=== PATIENT | male | born 1955 | race Caucasian/White ===

== ENCOUNTER 2023-11-17 10:24 | Day surgery (SDC) | payer MEDICARE, SELFPAY ==
[2023-11-17 11:54] VITALS: BP 109/74; PULSE 97; RESP 18; TEMP 36.2; O2SAT 96
[2023-11-17] MEDS: Tropicam./Phenyleph. (1/2.5%) 5 ML BTL ×3 (11:59→12:09)
--- NOTE | 2023-11-17 12:03 | W.ANESPRE ---
General Info Date of Service Date Performed: 11/17/23 Height: 6 ft Weight: 90.7 kg Body Mass Index (BMI): 27.1 Surgical Procedure: Operation Date: 11/17/23 14:40 Proposed Procedure Side Surgeon p Cataract Extraction with IOL Implant Right Guy Fitzgerald MD Meds Allergies and Home Medications Allergies Allergy/AdvReac Type Severity Reaction Status Date / Time polystyrene sulfonate (From Allergy Mild Diarrhea Unverified 11/17/23 11:52 Kayexalate) metformin Allergy Unknown Unknown Unverified 11/17/23 11:52 Home Medication ?Medication ?Instructions ?Recorded aspirin 81 mg tablet,delayed 81 mg PO DAILY 11/16/22 release (Adult Aspirin Regimen) atorvastatin 40 mg tablet 40 mg PO DAILY 11/16/22 furosemide 40 mg tablet 40 mg PO BID 11/16/22 insulin glargine 100 unit/mL (3 6 unit subcut QPM 11/16/22 mL) subcutaneous pen (Lantus Solostar U-100 Insulin) vitamin B complex-vitamin C-folic 1 tab PO DAILY #1 tab 11/21/22 acid 0.8 mg tablet (Nephro-Deep) metoprolol succinate 100 mg 50 mg PO DAILY 11/08/23 tablet,extended release 24 hr sevelamer HCl 800 mg tablet 1,600 mg PO TID 11/08/23 Current Visit Medications: Current Medications Generic Name Dose Route Start Last Admin Trade Name Freq PRN Reason Stop Dose Admin Acetaminophen 1,000 mg 11/17/23 06:00 Acetaminophen 500 Mg Tab PO 12/17/23 05:59 Q4H PRN PRN Balanced Salt Solution 500 ml 11/17/23 06:00 Balanced Salt Soln.-Plus 500 Ml Bag OP 12/17/23 05:59 DIRECTED ROZ Miscellaneous Medication 0 ml 11/17/23 06:00 Prednisolone 1%, Moxifloxacin 0.5%, Bromfenac 0.09% 5.6ml Btl OD 12/17/23 05:59 DIRECTED ROZ Miscellaneous Medication 0 ml 11/17/23 06:00 Tropicam./Phenyleph. (1/2.5%) 10 Ml Btl OD 12/17/23 05:59 DIRECTED ROZ Tetracaine HCl 0 ml 11/17/23 06:00 Tetracaine 0.5% 4 Ml Btl OD 12/17/23 05:59 DIRECTED [facility] Active Problems Active Problems: Problem Status Onset Code Posterior subcapsular age-related cataract, right eye Acute H25.041 Nuclear age-related cataract, right eye Acute H25.11 Vitamin D deficiency Acute E55.9 Uremia Acute N19 Neuropathy Acute G62.9 Hyperlipemia Acute E78.5 Metabolic acidemia Acute E87.20 Hypoglycemia Acute E16.2 Hypocalcemia Acute E83.51 Hyperkalemia Acute E87.5 CHF (congestive heart failure) Chronic I50.9 Ventricular tachycardia Chronic I47.20 Presence of implantable cardioverter-defibrillator (ICD) Acute Z95.810 End stage renal disease Acute N18.6 HTN (hypertension) with goal to be determined Acute I10 Cirrhosis Acute K74.60 Diabetes mellitus Chronic E11.9 Cardiomyopathy Acute I42.9 Medical History Medical History ESRD on dialysis 11/15/23 last dialysis- Hx of diarrhea GI bleed Anemia Surgical History Surgical History Status post biopsy of kidney right Kidney Biopsy 09/16/2020 H/O endoscopy 06/26/2022 Tobacco Smoking/Tobacco Use Status: Former Tobacco Use Alcohol Alcohol Intake: former Substance Use Substance use: Rarely Substance use type: marijuana Details: Marijuana: Last used 1 week ago Vital Signs and Lab Results Vital Signs Most Recent Vital Signs in EMR: Most Recent Vital Signs Temp Pulse Resp BP Pulse Ox 36.2 C L 97 H 18 109/74 96 11/17/23 11:54 11/17/23 11:54 11/17/23 11:54 11/17/23 11:54 11/17/23 11:54 Point of Care Results Point of Care Results: Finger Stick Blood Glucose 106 11/17/23 12:02 Lab Results Blood Type / Crossmatch: No Data to Display Complete Blood Count: No Data to Display Complete Metabolic Panel: No Data to Display Liver Function Panel: No Data to Display Coagulation Panel: No Data to Display Cardiac Panel: No Data to Display Arterial Blood Gas: No Data to Display Venous Blood Gas: No Data to Display Pancreas Panel: No Data to Display Thyroid Panel: No Data to Display Infectious Disease: No Data to Display Blood Cultures: No Data to Display Toxicology Panel: No Data to Display Anesthesia Assessment and Plan Anesthesia History Personal History: No History of Anesthesia Complications Family History: No Family History of Anesthesia Complications Exercise Tolerance Exercise Tolerance: Metabolic Equivalents<4 Pertinent Negatives Pertinent Negatives: No Major Cardiovascular Symptoms or Complaints and No Major Pulmonary Symptoms or Complaints Cardiac & Pulmonary Exam Cardiac Exam: Normal S1/S2 Heart Sounds Pulmonary Exam: Clear Bilateral Breath Sounds Implantable Cardiac Device Does patient have a Pacemaker or an ICD?: Yes Device Senior Web Engineer:: [employer] [id number] Reason for Placement:: V-tach, ventricular tachycardia Date of Last Device Interrogation:: 10/21/23 Airway Exam Known Difficult Airway: No Mallampati Class: 2 Mouth Opening: Normal (> 3cm) Thyromental Distance: Greater than 3 cm Neck Range of Motion: Full ROM Neck Circumference: Normal Teeth Condition: Generalized Poor Dentition (one tooth upper, broken nubs front lower) ASA Classification ASA Score: ASA 4 Emergency Case?: No NPO Status NPO Status: NPO Clears >2 hours, Solids >8 hours Anesthesia Plan Resuscitation Status: Full Code Anesthesia Technique: MAC Anesthesia Airway Planned: Natural Airway Monitors Used: Standard Monitors Preoperative Comments:: Last dialysis 11/17/23 am
[2023-11-17 12:19] VITALS: BMI 27.1
[2023-11-17] MEDS: Lidocaine 1% Pres-Free 5 ML VIAL (13:28)
[2023-11-17] MEDS: Duovisc Viscoelastic System EACH 1 EACH (13:28)
[2023-11-17] MEDS: Trypan Blue 0.06% 0.5 ML SYR (13:30)
[2023-11-17] MEDS: Balanced Salt Soln.-PLUS 500 ML BAG OP (13:30)
[2023-11-17] MEDS: Povidone-Iodine Ophth 30 ML BTL (13:30)
[2023-11-17] MEDS: Prednisolone 1%, Moxifloxacin 0.5%, Bromfenac 0.09% 5.6ML BTL OD (13:31)
[2023-11-17] MEDS: Tetracaine 0.5% 4 ML BTL OD (13:31)
[2023-11-17 14:05] VITALS: BP 122/57; PULSE 87; RESP 18; TEMP 36.4; O2SAT 99
--- NOTE | 2023-11-17 14:09 | W.PM.DSUDISC ---
Date of service: 11/17/23 Time of Service: 14:09 Discharge Plan Disposition Patient Disposition: Home Discharge Details Attending Provider: Guy Fitzgerald Primary Care Provider: Mervin Mcfarlane Home Meds and New Rx's Prescriptions: No Action aspirin [Adult Aspirin Regimen] 81 mg tablet,delayed release (DR/EC) 81 mg PO DAILY atorvastatin 40 mg tablet 40 mg PO DAILY furosemide 40 mg tablet 40 mg PO BID insulin glargine [Lantus Solostar U-100 Insulin] 100 unit/mL (3 mL) insulin pen 6 unit subcut QPM Nephro-Deep 0.8 mg tablet 1 tab PO DAILY Qty: 1 0RF metoprolol succinate 100 mg tablet extended release 24 hr 50 mg PO DAILY sevelamer HCl 800 mg tablet 1,600 mg PO TID Rx Instructions: must administer with a meal/food Discharge Instructions Stand Alone Forms: DSU Post-Op CataractMonalisa (DSU) Discharge Orders Discharge Orders: Discharge Order (Routine); Ordered 11/17/23 Ordered By: Guy Fitzgerald DS: Diagnosis Discharge Diagnosis (1) Posterior subcapsular age-related cataract, right eye: Status: Resolved (2) Nuclear age-related cataract, right eye: Status: Resolved
--- NOTE | 2023-11-17 14:10 | ROE_ITS ---
Date of service: 11/17/23 Time of Service: 14:10 Operative Note Operative Note DATE OF PROCEDURE: 11/17/23 PRE-OP DIAGNOSIS: Dense nuclear/posterior subcapsular cataract, right eye POST-OP DIAGNOSIS: same PROCEDURE: Cataract extraction using phacoemulsification with intraocular lens implant, right eye SURGEON: Guy Fitzgerald ANESTHESIA TYPE: Local By Surgeon and MAC Refer to Anesthesia Record ESTIMATED BLOOD LOSS: 0 PATHOLOGY: none sent COMPLICATIONS: None Patient was transported to: same day Patient's condition: stable Implants: Jasper Clareon [id number] Indications: Progressive decreased vision due to cataract, right eye Procedure Description: CATARACT SURGERY OPERATIVE REPORT PREOPERATIVE DIAGNOSIS: Dense nuclear/posterior subcapsular cataract, right eye POSTOPERATIVE DIAGNOSIS: Same OPERATION: Cataract extraction using phacoemulsification with posterior chamber intraocular lens implant, right eye. IOL: IOL Senior Drupal Developer/Model: Jasper Clareon [id number] IOL Power: + 17.5 diopters IOL Serial Number: [id number] Optic Diameter: 6.0mm Haptic/Overall Diameter: 13.0mm PHACO INFO: Jasper [employer]urion Vision System with OZil and Active Fluidics Cumulative Dispersed Energy (CDE): 35.37 seconds SURGEON: Guy Fitzgerald MD, ANIKET ANESTHESIA: Monitored Anesthesia Care (MAC), with local sub-tenon's anesthetic infiltration COMPLICATIONS: None SPECIMENS: None INDICATIONS FOR PROCEDURE: The patient is a 68-year-old male with history of diminished visual acuity in his right eye secondary to the development of dense brunescent nuclear cataract with dense posterior subcapsular cataract as well. Visual acuity measures counting fingers. The option of cataract surgery was offered to the patient and he wished to proceed. See office notes for detailed information. PROCEDURE: The correct surgical eye was identified and marked as the right eye and the pupil was dilated in the preoperative area using mydriatics and cycloplegics. The dilated pupil size was 6.0 mm. The patient elected to pr oceed without oral sedation. The patient was brought to the operating room where cardiopulmonary monitoring was instituted and surgical time-out was performed, confirming the correct operative eye and IOL power. Topical anesthesia was administered and ophthalmic povidone-iodine 5% was instilled into the conjunctival fornices. The irene-ocular area was prepped with Betadine 10% solution and draped in the usual sterile fashion for intraocular surgery, including an aperture drape. A Tegaderm transparent film dressing was cut in half and used to cover the lashes and lid margins. Care was taken to sequester the lashes and lid margins under the Tegaderm dressing. A lid speculum was placed between the lids of the operative eye and the Jasper Lux[employer] Revalia operating microscope was maneuvered into position. Rk scissors were then used to make a conjunctival buttonhole approximately 6mm posterior to the limbus in the inferonasal quadrant. Blunt dissection was carried out to expose bare sclera, and a blunt-tipped sub-tenon?s anesthesia cannula was introduced and passed posteriorly along the globe where non- preserved plain lidocaine was injected into posterior sub-Tenon?s space. A sideport knife was used to make a paracentesis port. VisionBlue was injected into the anterior chamber and allowed to sit for 30 seconds. Intraocular phenylephrine/lidocaine was injected into the anterior chamber. The anterior chamber was then filled with viscoelastic. A keratome knife was used to construct a two--plane clear corneal tunnel extending 2.0mm into clear cornea. A flap was raised on the anterior capsule and capsulorhexis forceps were used to complete a continuous curvilinear capsulorhexis of 5.0 mm. The capsule was noted to be very thin. Balanced salt solution was then used to perform cortical cleaving hydrodissection and nuclear hydrodelineation until the lens could be freely rotated within the capsular bag. The lens nucleus was then disassembled and removed within the capsular bag and iris plane using phacoemulsification. A deep groove was sculpted into the central nucleus, which was then rotated 180 degrees and the groove was lengthened. The lens was then cracked into 2 halves, although there was a dense leathery posterior plate which required some extra sculpting and cracking to completely separate. Under additional dispersive viscoelastic protection, each nuclear half was then subchopped into multiple small fragments and removed at the iris plane. Residual cortical material was removed using the I/A handpiece. The posterior capsule was carefully polished to remove as much residual lens epithelial cells as safely possible. The capsular bag was then inflated and the anterior chamber deepened with cohesive viscoelastic. The lens implant described above was inserted into the capsular bag using the Jasper Autonome Injector. A Kuglen hook was used to dial the IOL into position. Residual viscoelastic was then removed first from posterior to the IOL, then from the anterior chamber using the I/A handpiece. The lens implant was noted to center nicely within the capsular bag. The incisions were stromally hydrated, and the anterior chamber was reformed using BSS. Then 0.5cc of moxifloxacin 1.0mg/ml were injected into the capsular bag and anterior chamber. The incisions were checked with a Weck spear and found to be secure. Several drops of ophthalmic povidone-iodine 5% were then applied to the eye followed by two drops of combination steroid/NSAID/antibiotic solution. The drapes were removed and a clear plastic protective eye shield was placed over the eye. The patient was then returned to Same Day Surgery in stable condition.
--- NOTE | 2023-11-17 14:18 | W.ANESPOSTOP ---
Postoperative Evaluation Date, Time and Location Date Performed: 11/17/23 Time Performed: 14:18 Patient Location: Day Surgery Unit Vital Signs Most Recent Imported Vital Signs: Most Recent Vital Signs Temp Pulse Resp BP Pulse Ox 36.4 C L 87 18 122/57 L 99 11/17/23 14:05 11/17/23 14:05 11/17/23 14:05 11/17/23 14:05 11/17/23 14:05 Pain Score Most Recent Pain Score: Most Recent Pain Score Pain Level 0 11/17/23 14:05 Assessment Mental Status: Awake (Alert & Oriented to Patient Baseline) Airway and Respiratory Function: Patent airway with normal (patient baseline) respiratory exam Cardiovascular Function: Hemodynamically Stable Hydration Status: Adequately Hydrated Nausea & Vomiting: No Nausea or Vomiting Pain: Pt. Denies Any Pain Peripheral Nerve Block: Patient did not receive a nerve block
== END 2023-11-17 14:23 | disposition home or self-care (01) ==
LOC: SUR 10:27
PROVIDERS: PCP Family Medicine; Visit Provider Ophthalmology
PROC: (CPT 66984; principal; 2023-11-17 14:30)
DX: H25.041 Posterior subcapsular polar age-related cataract, right eye (principal); H25.11 Age-related nuclear cataract, right eye
CPT/HCPCS: 66984; 00123; V2632; J2003

== ENCOUNTER → 2023-11-20 10:49 | Outpatient (BNVA) | payer MEDICARE, SELFPAY | PROVIDERS: PCP Family Medicine; Referring Provider Family Medicine; Visit Provider Surgery | DX: N18.6 End stage renal disease (principal); Z99.2 Dependence on renal dialysis ==

== ENCOUNTER 2023-12-01 10:47 | Day surgery (SDC) | payer MEDICARE, SELFPAY ==
--- NOTE | 2023-12-01 07:03 | HPE_ITS ---
Assessment and Plan Assessment and plan (1) Posterior subcapsular age-related cataract of left eye: Status: Acute (2) Nuclear age-related cataract, left eye: Status: Acute History of Present Illness History of Present Illness Chief Complaint: Progressive decreased vision left eye Review of Systems All systems reviewed & are unremarkable except as noted in HPI and below PFSH All Active Problems (Updated 11/29/23 @ 20:00 by Guy Fitzgerald MD) Posterior subcapsular age-related cataract of left eye (Acute) Nuclear age-related cataract, left eye (Acute) Dialysis patient (Acute) Vitamin D deficiency (Acute) Uremia (Acute) Neuropathy (Acute) Hyperlipemia (Acute) Metabolic acidemia (Acute) Hypoglycemia (Acute) Hypocalcemia (Acute) Hyperkalemia (Acute) CHF (congestive heart failure) (Chronic) Ventricular tachycardia (Chronic) on amiodarone therapy RH Presence of implantable cardioverter-defibrillator (ICD) (Acute) 11/16/22 [place] at [facility] [place] after cardiac arrest after dialysis RH End stage renal disease (Acute) hemodialysis RH HTN (hypertension) with goal to be determined (Acute) Cirrhosis (Acute) Diabetes mellitus (Chronic) Cardiomyopathy (Acute) 11/16/22 from [facility] [place] severely reduced LVEF history of cardiac arrest RH Medical History (Updated 11/29/23 @ 20:00 by Guy Fitzgerald MD) ESRD on dialysis 11/15/23 last dialysis- Hx of diarrhea GI bleed Anemia Surgical History Status post biopsy of kidney right Kidney Biopsy 09/16/2020 H/O endoscopy 06/26/2022 Social History (Updated 11/21/22 @ 11:24 by Anthony Cruz) Smoking/Tobacco Use Status: Former Tobacco Use Quit Date: 08/08/21 Smoking risk assessment performed?: Yes Alcohol Intake: former Drug use: Rarely Substance use type: marijuana Details: Marijuana: Last used 1 week ago Housing: apartment Do you feel safe at home: Yes Do you feel safe in your relationship?: Yes Meds Allergies and Home Medications Allergies Allergy/AdvReac Type Severity Reaction Status Date / Time polystyrene sulfonate (From Allergy Mild Diarrhea Verified 11/28/23 15:10 Kayexalate) metformin Allergy Unknown Unknown Verified 11/28/23 15:10 Home Medications ?Medication ?Instructions ?Recorded ?Confirmed ?Type aspirin 81 mg tablet,delayed 81 mg PO DAILY 11/16/22 11/28/23 History release (Adult Aspirin Regimen) atorvastatin 40 mg tablet 40 mg PO DAILY 11/16/22 11/28/23 History furosemide 40 mg tablet 40 mg PO BID 11/16/22 11/28/23 History insulin glargine 100 unit/mL (3 6 unit subcut QPM 11/16/22 11/28/23 History mL) subcutaneous pen (Lantus Solostar U-100 Insulin) vitamin B complex-vitamin C-folic 1 tab PO DAILY #1 tab 11/21/22 11/28/23 Rx acid 0.8 mg tablet (Nephro-Deep) metoprolol succinate 100 mg 50 mg PO DAILY 11/08/23 11/28/23 History tablet,extended release 24 hr sevelamer HCl 800 mg tablet 1,600 mg PO TID 11/08/23 11/28/23 History Exam Resp Auscultation: clear to auscultation bilaterally Cardio Rate: regular rate Rhythm: regular rhythm
--- NOTE | 2023-12-01 11:53 | W.ANESPRE ---
General Info Height: 6 ft Weight: 90.6 kg Body Mass Index (BMI): 27.1 Surgical Procedure: Operation Date: 12/01/23 14:40 Proposed Procedure Side Surgeon p Cataract Extraction with IOL Implant Left Guy Fitzgerald MD Meds Allergies and Home Medications Allergies Allergy/AdvReac Type Severity Reaction Status Date / Time polystyrene sulfonate (From Allergy Mild Diarrhea Verified 11/28/23 15:10 Kayexalate) metformin Allergy Unknown Unknown Verified 11/28/23 15:10 Home Medication ?Medication ?Instructions ?Recorded aspirin 81 mg tablet,delayed 81 mg PO DAILY 11/16/22 release (Adult Aspirin Regimen) atorvastatin 40 mg tablet 40 mg PO DAILY 11/16/22 furosemide 40 mg tablet 40 mg PO BID 11/16/22 insulin glargine 100 unit/mL (3 6 unit subcut QPM 11/16/22 mL) subcutaneous pen (Lantus Solostar U-100 Insulin) vitamin B complex-vitamin C-folic 1 tab PO DAILY #1 tab 11/21/22 acid 0.8 mg tablet (Nephro-Deep) metoprolol succinate 100 mg 50 mg PO DAILY 11/08/23 tablet,extended release 24 hr sevelamer HCl 800 mg tablet 1,600 mg PO TID 11/08/23 Current Visit Medications: Current Medications Generic Name Dose Route Start Last Admin Trade Name Freq PRN Reason Stop Dose Admin Acetaminophen 1,000 mg 12/01/23 06:00 Acetaminophen 500 Mg Tab PO 12/31/23 05:59 Q4H PRN PRN Balanced Salt Solution 500 ml 12/01/23 06:00 Balanced Salt Soln.-Plus 500 Ml Bag OP 12/31/23 05:59 DIRECTED [facility] Miscellaneous Medication 0 ml 12/01/23 06:00 Prednisolone 1%, Moxifloxacin 0.5%, Bromfenac 0.09% 5.6ml Btl OS 12/31/23 05:59 DIRECTED [facility] Miscellaneous Medication 0 ml 12/01/23 06:00 Tropicam./Phenyleph. (1/2.5%) 10 Ml Btl OS 12/31/23 05:59 DIRECTED ROZ Tetracaine HCl 0 ml 12/01/23 06:00 Tetracaine 0.5% 4 Ml Btl OS 12/31/23 05:59 DIRECTED ROZ PFSH Active Problems Active Problems: Problem Status Onset Code Posterior subcapsular age-related cataract of left eye Acute H25.042 Nuclear age-related cataract, left eye Acute H25.12 Dialysis patient Acute Z99.2 Posterior subcapsular age-related cataract, right eye Resolved H25.041 Nuclear age-related cataract, right eye Resolved H25.11 Vitamin D deficiency Acute E55.9 Uremia Acute N19 Neuropathy Acute G62.9 Hyperlipemia Acute E78.5 Metabolic acidemia Acute E87.20 Hypoglycemia Acute E16.2 Hypocalcemia Acute E83.51 Hyperkalemia Acute E87.5 CHF (congestive heart failure) Chronic I50.9 Ventricular tachycardia Chronic I47.20 Presence of implantable cardioverter-defibrillator (ICD) Acute Z95.810 End stage renal disease Acute N18.6 HTN (hypertension) with goal to be determined Acute I10 Cirrhosis Acute K74.60 Diabetes mellitus Chronic E11.9 Cardiomyopathy Acute I42.9 Medical History Medical History (Updated 11/29/23 @ 20:00 by Guy Fitzgerald MD) ESRD on dialysis 11/15/23 last dialysis- Hx of diarrhea GI bleed Anemia Surgical History Surgical History Status post biopsy of kidney right Kidney Biopsy 09/16/2020 H/O endoscopy 06/26/2022 Tobacco Smoking/Tobacco Use Status: Former Tobacco Use Alcohol Alcohol Intake: former Substance Use Substance use: Rarely Substance use type: marijuana Details: Marijuana: Last used 1 week ago Vital Signs and Lab Results Lab Results Blood Type / Crossmatch: No Data to Display Complete Blood Count: No Data to Display Complete Metabolic Panel: No Data to Display Liver Function Panel: No Data to Display Coagulation Panel: No Data to Display Cardiac Panel: No Data to Display Arterial Blood Gas: No Data to Display Venous Blood Gas: No Data to Display Pancreas Panel: No Data to Display Thyroid Panel: No Data to Display Infectious Disease: No Data to Display Blood Cultures: No Data to Display Toxicology Panel: No Data to Display Anesthesia Assessment and Plan Anesthesia History Personal History: No History of Anesthesia Complications Family History: No Family History of Anesthesia Complications Exercise Tolerance Exercise Tolerance: Metabolic Equivalents<4 Pertinent Negatives Pertinent Negatives: No Major Cardiovascular Symptoms or Complaints and No Major Pulmonary Symptoms or Complaints Cardiac & Pulmonary Exam Cardiac Exam: Normal S1/S2 Heart Sounds Pulmonary Exam: Clear Bilateral Breath Sounds Implantable Cardiac Device Does patient have a Pacemaker or an ICD?: Yes Device Healthcare Science Specialist:: [employer]a [id number] Reason for Placement:: [facility] Date of Last Device Interrogation:: 10/21/23 Airway Exam Known Difficult Airway: No Mallampati Class: 2 Mouth Opening: Normal (> 3cm) Thyromental Distance: Greater than 3 cm Neck Range of Motion: Full ROM Neck Circumference: Normal Teeth Condition: Generalized Poor Dentition (one tooth upper, broken nubs front lower) ASA Classification ASA Score: ASA 4 Emergency Case?: No NPO Status NPO Status: NPO Clears >2 hours, Solids >8 hours Anesthesia Plan Resuscitation Status: Full Code Anesthesia Technique: MAC Anesthesia Airway Planned: Natural Airway Monitors Used: Standard Monitors Preoperative Comments:: Last dialysis 11/17/23 am
[2023-12-01 11:59] VITALS: BP 84/76; PULSE 54; RESP 16; TEMP 35.9; O2SAT 96
[2023-12-01 12:15] VITALS: BP 60/45
[2023-12-01 12:30] VITALS: BP 66/54
--- NOTE | 2023-12-01 12:31 | DSU.FORM ---
1231 12/01/2023 Shakeel came into DSU for cataract surgery pre op, patient reported he had just come from dialysis and was feeling dizzy. Patient said I think they took too much off me. Patient BP very low (see DSU assessment). Anesthesia made aware and came in to see the patient. BP while anesthesia in room 66/54. Anesthesia and MD decided to postpone the patient surgery today and to send the patient to ED for treatment.
--- NOTE | 2023-12-01 13:06 | PDOC.ANES ---
Date of service: 12/01/23 Time of Service: 12:30 Anesthesia Note Report Anesthesia Note: Patient seen at bedside in DSU: Pale reporting feeling very unwell. BP 60s/40s with multiple rechecks. Patient reports over 3kg of weight lost during dialysis today. Patient is most likely in an acute post-dialysis episode. Discussed with Dr. Fitzgerald: patient cancelled for today and can be rescheduled. Patient to ED for more rigorous monitoring and intervention as appropriate.
--- NOTE | 2023-12-01 13:09 | DSU.FORM ---
12/01/2023 1215 BP taken, 60/45 anesthesia made aware.
== END 2023-12-01 10:48 | disposition home or self-care (01) ==
PROVIDERS: PCP Family Medicine; Visit Provider Ophthalmology
DX: Z53.09 Procedure and treatment not carried out because of other contraindication (principal); H25.042 Posterior subcapsular polar age-related cataract, left eye
CPT/HCPCS: 99283; J2003

== ENCOUNTER 2023-12-01 12:21 | Emergency (ER) | payer MEDICARE, SELFPAY ==
[2023-12-01 12:24] VITALS: BP 96/64; PULSE 69; RESP 15; TEMP 36.4; O2SAT 95
[2023-12-01 12:28] VITALS: BP 96/64; PULSE 69; RESP 15; TEMP 36.4; O2SAT 95
[2023-12-01 12:43] VITALS: BP 108/64; PULSE 104; RESP 19; TEMP 36.4; O2SAT 96
--- NOTE | 2023-12-01 16:13 | ED.GENADUL_ITS ---
Discharge Plan Disposition Patient Disposition: Home Discharge Details Clinical Impression: Dialysis patient, End stage renal disease Primary Care Provider: Mervin Mcfarlane ED Provider: Calvin Campos Home Meds and New Rx's Prescriptions: No Action aspirin [Adult Aspirin Regimen] 81 mg tablet,delayed release (DR/EC) 81 mg PO DAILY atorvastatin 40 mg tablet 40 mg PO DAILY furosemide 40 mg tablet 40 mg PO BID insulin glargine [Lantus Solostar U-100 Insulin] 100 unit/mL (3 mL) insulin pen 6 unit subcut QPM Nephro-Deep 0.8 mg tablet 1 tab PO DAILY Qty: 1 0RF metoprolol succinate 100 mg tablet extended release 24 hr 50 mg PO DAILY sevelamer HCl 800 mg tablet 1,600 mg PO TID Rx Instructions: must administer with a meal/food Velphoro 500 mg tablet,chewable 500 mg PO TID Patient Comments: CRUSH OR CHEW AND SWALLOW 1 TABLET 3 TIMES A DAY WITH MEALS Discharge Instructions Additional Instructions: * Please take all your daily medications when you get home and resumed eating and drinking * I'm sorry your surgery was canceled, but they will reschedule * discuss your dialysis regimine and taking off too much fluid HPI General Date/Time Provider Initiated Documentation: 12/01/23 12:29 . Limitations to Documentation: no limitations . Information obtained by: patient . HPI Narrative: Patient is a 68-year-old gentleman with past medical history of ESRD on dialysis Monday, CHF, diabetes. Patient is brought over from day surgery for evaluation of low blood pressures. Patient was in the preoperative area waiting for cataract surgery. Reports that he was dialyzed this morning he states that this week they have been taking a significant amount of fluid off. His dry weight had gone from 92 kg, 1090 kg this week he states that when he went in for dialysis this morning he was at 93 kg and left at 90 kg. He states that he is not quite sure whether taking some fluid off and that it makes him feel little bit weak. But he denies any chest pain, shortness of breath. He has not eaten or had anything to drink today as he has been n.p.o. for surgery. He is also not taken any of his morning medications. He denies any complaints at this time, he states that he was just disappointed because she really wanted to have his cataract surgery completed Related Data Home Medications ?Medication ?Instructions ?Recorded ?Confirmed aspirin 81 mg tablet,delayed 81 mg PO DAILY 11/16/22 12/01/23 release (Adult Aspirin Regimen) atorvastatin 40 mg tablet 40 mg PO DAILY 11/16/22 12/01/23 furosemide 40 mg tablet 40 mg PO BID 11/16/22 12/01/23 insulin glargine 100 unit/mL (3 6 unit subcut QPM 11/16/22 12/01/23 mL) subcutaneous pen (Lantus Solostar U-100 Insulin) vitamin B complex-vitamin C-folic 1 tab PO DAILY #1 tab 11/21/22 12/01/23 acid 0.8 mg tablet (Nephro-Deep) metoprolol succinate 100 mg 50 mg PO DAILY 11/08/23 12/01/23 tablet,extended release 24 hr sevelamer HCl 800 mg tablet 1,600 mg PO TID 11/08/23 12/01/23 sucroferric oxyhydroxide 500 mg 500 mg PO TID 12/01/23 12/01/23 chewable tablet (Velphoro) Previous Rx's ?Medication ?Instructions ?Recorded vitamin B complex-vitamin C-folic 1 tab PO DAILY #1 tab 11/21/22 acid 0.8 mg tablet (Nephro-Deep) Allergies Allergy/AdvReac Type Severity Reaction Status Date / Time polystyrene sulfonate (From Allergy Mild Diarrhea Verified 12/01/23 12:29 Kayexalate) metformin Allergy Unknown Unknown Verified 12/01/23 12:29 General Stated Complaint: [facility] NATHALY: 3 Exam Narrative Exam Narrative: Review of Systems: All systems reviewed & are unremarkable except as noted in HPI and below Well-developed, no acute distress NCAT irregular tunneled cath in right chest wall Unlabored respiratory effort no hypoxia, no crackles Nondistended abdomen Extremities w/o edema Course Vital Signs Vital signs: Vital Signs Temperature 36.4 C 12/01/23 12:24 Pulse 69 12/01/23 12:24 Respiratory Rate 15 12/01/23 12:24 Blood Pressure 96/64 L 12/01/23 12:24 Pulse Oximetry 95 12/01/23 12:24 Temperature 36.4 C L 12/01/23 12:43 Temperature Source Oral 12/01/23 12:28 Pulse 104 H 12/01/23 12:43 Respiratory Rate 19 12/01/23 12:43 Respiratory Effort Normal, Non-Labored 12/01/23 12:43 Respiratory Depth Normal 12/01/23 12:43 Respiratory Pattern Normal 12/01/23 12:43 Blood Pressure 108/64 12/01/23 12:43 Blood Pressure Position Sitting 12/01/23 12:28 Pulse Oximetry 96 12/01/23 12:43 Oxygen Delivery Method Room Air 12/01/23 12:28 Oxygen Flow Rate 0 12/01/23 12:28 Pain Level 0 12/01/23 12:43 Medical Decision Making Evaluation of hypotension. Patient is a dialysis patient and was dialyzed at this morning. Excess fluid was taken off, he lost 3 kg. I suspect that this is the cause of his hypotension in addition to his n.p.o. status. He is asymptomatic though. Unfortunately has had his surgery canceled as he is asym ptomatic, and his blood pressure is improving here in the emergency department, I do not feel any lab work is indicated and the patient does not warrant any as well. He is noted to have some slight tachycardia but he has a history of A-fib but he has not taken his rate controlling medications. I recommend the patient follow-up closely with his PCP, return if he develops any symptoms, and discuss ed as dry weight with his dialysis team Quality:SDOH Health Related Social Needs: No Data to Display PFSH All Active Problems Posterior subcapsular age-related cataract of left eye (Acute) Nuclear age-related cataract, left eye (Acute) Dialysis patient (Acute) Vitamin D deficiency (Acute) Uremia (Acute) Neuropathy (Acute) Hyperlipemia (Acute) Metabolic acidemia (Acute) Hypoglycemia (Acute) Hypocalcemia (Acute) Hyperkalemia (Acute) CHF (congestive heart failure) (Chronic) Ventricular tachycardia (Chronic) on amiodarone therapy RH Presence of implantable cardioverter-defibrillator (ICD) (Acute) 11/16/22 placed at [facility] 10/22/22 after cardiac arrest after dialysis RH End stage renal disease (Acute) hemodialysis RH HTN (hypertension) with goal to be determined (Acute) Cirrhosis (Acute) Diabetes mellitus (Chronic) Cardiomyopathy (Acute) 11/16/22 from [facility] severely reduced LVEF history of cardiac arrest RH Medical History ESRD on dialysis 11/15/23 last dialysis- Hx of diarrhea GI bleed Anemia Surgical History Status post biopsy of kidney right Kidney Biopsy 09/16/2020 H/O endoscopy 06/26/2022 Social History Smoking/Tobacco Use Status: Current-Occasional Tobacco Type: cigarettes Smoking risk assessment performed?: Yes Alcohol Intake: former Drug use: Rarely Substance use type: marijuana Details: Marijuana: Last used 1 week ago Housing: apartment Do you feel safe at home: Yes Do you feel safe in your relationship?: Yes
== END 2023-12-01 13:07 | disposition home or self-care (01) ==
PROVIDERS: Emergency Provider Emergency Medicine; PCP Family Medicine
DX: I95.9 Hypotension, unspecified (principal); I13.2 Hypertensive heart and chronic kidney disease with heart failure and with stage 5 chronic kidney disease, or end stage renal disease; E11.22 Type 2 diabetes mellitus with diabetic chronic kidney disease; N18.6 End stage renal disease; I50.9 Heart failure, unspecified; F17.210 Nicotine dependence, cigarettes, uncomplicated; Z79.82 Long term (current) use of aspirin; Z79.4 Long term (current) use of insulin; Z99.2 Dependence on renal dialysis; Z95.810 Presence of automatic (implantable) cardiac defibrillator
CPT/HCPCS: 99283

== ENCOUNTER → 2023-12-19 09:34 | Outpatient (BNVA) | payer MEDICARE, BC, SELFPAY | PROVIDERS: PCP Family Medicine; Referring Provider Family Medicine; Visit Provider Surgery | DX: Z99.2 Dependence on renal dialysis (principal) | CPT/HCPCS: 36590 ==

== ENCOUNTER 2024-10-23 08:16 | Outpatient (CLI) | payer MEDICARE, BC, SELFPAY ==
--- NOTE | 2024-10-23 08:15 | RT.EKG_ITS ---
APPROVED REPORT Exam: Resting ECG Reason for Exam: VT Patient Location: O HR:102 bpm ECG Measurements Heart Rate 102 AXIS OK 181 P 43 QRSd 153 QRS 84 QT 377 T 68 QTc 492 Conclusion Sinus tachycardia...rate> 99 Right bundle branch block...QRSd>120, terminal axis(90,270) Inferior infarct, old...Q >35mS, II III aVF Baseline wander in lead(s) V1
== END 2024-10-23 08:17 | disposition home or self-care (01) ==
LOC: DI.CARD 08:16
PROVIDERS: PCP Family Medicine; Visit Provider Student in an Organized Health Care Education/Training Program
DX: Z95.810 Presence of automatic (implantable) cardiac defibrillator (principal); I47.20 Ventricular tachycardia, unspecified; I25.10 Atherosclerotic heart disease of native coronary artery without angina pectoris; I45.10 Unspecified right bundle-branch block
CPT/HCPCS: 93010

== ENCOUNTER → 2024-10-23 14:10 | Outpatient (BNVA) | payer MEDICARE, BC, SELFPAY | PROVIDERS: PCP Specialist/Technologist Athletic Trainer; Referring Provider Specialist/Technologist Athletic Trainer; Visit Provider Student in an Organized Health Care Education/Training Program | DX: I25.10 Atherosclerotic heart disease of native coronary artery without angina pectoris (principal); I47.20 Ventricular tachycardia, unspecified; Z45.02 Encounter for adjustment and management of automatic implantable cardiac defibrillator; E11.9 Type 2 diabetes mellitus without complications | CPT/HCPCS: 93282 ==